=== PATIENT | female | born 1990 | race Caucasian/White ===

== ENCOUNTER 2017-12-26 20:18 | Emergency (ER) | payer SELFPAY ==
[2017-12-26 20:24] VITALS: BP 123/75
[2017-12-26] MEDS ORDERED: Raltegravir* 400 MG TAB PO ONE (20:56)
[2017-12-26] MEDS ORDERED: Tenofovir/Emtricitabine(*) TAB PO ONE (20:56)
[2017-12-26] MEDS ORDERED: Ondansetron ODT TAB* 4 MG PO ONE (20:56)
--- NOTE | 2017-12-26 21:52 | ED ---
- HPI Summary HPI Summary: Patient here with blood splash into her right eye just prior to arrival. 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 She immediately flushed her eye for about 10 minutes and came here. She's been flushing her eye continuously since for a total of > 15 mins and 500cc of sterile water. She denies visual change or ocular pain. Her immunizations are up-to-date including her hep B series. She is unsure of source patient at this point however as when she went back to check the tubes, her coworker had replaced the cap, making it difficult to identify the tube that was involved. She agrees to testing and PEP initiation here tonight. She does not wear contact lenses. - History of Current Complaint Chief Complaint: EDExposureBodyFluid Stated Complaint: SPECIMEN IN EYE Time Seen by Provider: 12/26/17 20:34 PMH/Surg Hx/FS Hx/Imm Hx Previously Healthy: Yes Endocrine/Hematology History: Denies: Hx Anticoagulant Therapy, Hx Blood Disorders, Autoimmune Disease - Immunization History Immunizations Up to Date: Yes Infectious Disease History: No Infectious Disease History: Denies: Traveled Outside the [place] in Last 30 Days - Family History Known Family History: Positive: None - Social History Occupation: Employed Full-time - [employer] Lives: With Family Alcohol Use: Rare Hx Substance Use: No Substance Use Type: Reports: None Hx Tobacco Use: No Smoking Status (MU): Never Smoked Tobacco Review of Systems Eyes: Other - splash as in HPI Positive: no symptoms reported Skin: Negative Neurological: Negative Psychological: Normal All Other Systems Reviewed And Are Negative: Yes Physical Exam Triage Information Reviewed: Yes Vital Signs On Initial Exam: Initial Vitals Temp Pulse Resp BP Pulse Ox 98.3 F 82 16 123/75 97 12/26/17 20:22 12/26/17 20:22 12/26/17 20:22 12/26/17 20:22 12/26/17 20:22 Vital Signs Reviewed: Yes Appearance: Positive: Well-Appearing, No Pain Distress, Well-Nourished Skin: Positive: Warm, Skin Color Reflects Adequate Perfusion, Dry Head/Face: Positive: Normal Head/Face Inspection Eyes: Positive: Normal, EOMI, BELEN, Conjunctiva Clear. Negative: Conjunctiva Inflammed, Discharge ENT: Positive: Hearing grossly normal, Pharynx normal - mucosa moist Neck: Positive: Supple Respiratory/Lung Sounds: Positive: Breath Sounds Present Cardiovascular: Positive: Normal Musculoskeletal: Positive: Normal, Strength/ROM Intact Neurological: Positive: Normal, Sensory/Motor Intact, Alert, Oriented to Person Place, Time, CN Intact II-III Psychiatric: Positive: Normal Diagnostics - Vital Signs Vital Signs Temp Pulse Resp BP Pulse Ox 12/26/17 20:22 98.3 F 82 16 123/75 97 - Laboratory Result Diagrams: 12/26/17 21:15 Lab Statement: Any lab studies that have been ordered have been reviewed, and results considered in the medical decision making process. [place] Course/Dx - Course Course Of Treatment: Given type of exposure, will initiate PEP. Nurse has located source pt. Will provide name to darion Dashsenior data warehouse architect, who will request day shift contact pt for testing. Pt will continue PEP in the meantime and f/u w/ Dr. Rashid tomorrow for further guidance until more answers return. - Diagnoses Provider Diagnoses: Employee exposure to blood Discharge - Sign-Out/Discharge Documenting (check all that apply): Discharge - Discharge Plan Condition: Stable Disposition: HOME Prescriptions: Raltegravir* [Isentress*] 400 mg PO BID #14 tab Tenofovir/Emtricitabine(*) [Truvada*] 1 tab PO DAILY #7 tab Patient Education Materials: Postexposure Prophylaxis (ED), Body Substance Exposure (ED) Referrals: Marcel MAN,Nato Cavanaugh [Medical Doctor] - Additional Instructions: Call Dr. Rashid tomorrow to initiate follow-up appointment prior to completing first week of PEP medication. 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 - Billing Disposition and Condition Condition: STABLE Disposition: HOME
[2017-12-26 22:49] LABS: Hematocrit 38 % (35-47); Hemoglobin 12.7 g/dl (12.0-16.0); Mean Corpuscular HGB Conc 34 g/dl (31-36); Mean Corpuscular Hemoglobin 31 pg (27-31); Mean Corpuscular Volume 91 fL (80-97); Platelet Count 223 10^3/ul (150-450); Red Blood Count 4.14 10^6/ul (4.0-5.4); Red Cell Distribution Width 13 % (10.5-15); White Blood Count 8.1 10^3/ul (3.5-10.8)
== END 2017-12-26 22:00 | disposition home or self-care (01) ==
LOC: ED 20:18
DX: Z77.21 Contact with and (suspected) exposure to potentially hazardous body fluids (principal); Z32.02 Encounter for pregnancy test, result negative; Z11.4 Encounter for screening for human immunodeficiency virus [HIV]
CPT/HCPCS: 36415; 80053; 84702; 85027; 86703; 86706; 86803; 87340; 99282; A9270-GY